=== PATIENT | female | born 1975 | race Hispanic/Latino ===

== ENCOUNTER → 2018-03-01 | Outpatient (CLI) | payer MEDICARE ==
[~2018-03-01] MED LIST: DIATR MEGLU/DIATRIZOATE SODIUM 30 ML BOTTLE ONE
== END | disposition home or self-care (01) ==
LOC: RAH 10:39
PROVIDERS: ATTEND Internal Medicine Gastroenterology
DX: Z43.1 Encounter for attention to gastrostomy (principal); M47.895 Other spondylosis, thoracolumbar region
CPT/HCPCS: 74018; Q9963

== ENCOUNTER → 2019-07-18 | Outpatient (CLI) | payer MEDICARE | END | disposition home or self-care (01) | LOC: RAH 10:52 | PROVIDERS: ATTEND Internal Medicine Gastroenterology | DX: M51.35 Other intervertebral disc degeneration, thoracolumbar region (principal) | CPT/HCPCS: 74018; Q9963 ==

== ENCOUNTER → 2023-06-20 | Outpatient (CLI) | payer MEDICARE | END | disposition home or self-care (01) | LOC: RAH 10:35 | PROVIDERS: ATTEND Internal Medicine Gastroenterology | DX: Z43.1 Encounter for attention to gastrostomy (principal); M47.815 Spondylosis without myelopathy or radiculopathy, thoracolumbar region | CPT/HCPCS: 74018; Q9963 ==

== ENCOUNTER 2024-02-05 08:11 | Emergency (ER) | payer MEDICARE ==
[~2024-02-05] VITALS: Ht 157.5 cm; Wt 54.4 kg
[2024-02-05] MEDS: METOCLOPRAMIDE 10 MG/2 ML VIAL IVP ONE (08:53)
[2024-02-05] MEDS: LACTATED RINGERS 1000ML IV SCH (08:53)
[2024-02-05 08:57] LABS: BASOPHILS # (AUTO) 0.03 K/uL (0.00-0.20); BASOPHILS % (AUTO) 0.5 % (0.0-5.0); EOSINOPHILS # (AUTO) 0.09 K/uL (0.00-0.70); EOSINOPHILS % (AUTO) 1.6 % (0.0-8.0); HEMATOCRIT 43.2 % (36-48); IMMATURE GRANULOCYTE ABSOLUTE 0.01 K/uL (0-1); LYMPHOCYTES # (AUTO) 1.9 K/uL (1.0-4.8); LYMPHOCYTES % (AUTO) 33.9 % (21.0-51.0); MEAN CORPUSCULAR HEMOGLOBIN 32.1 pg (27.0-33.0); MEAN CORPUSCULAR VOLUME 94.3 fL (79-99); MONOCYTES # (AUTO) 0.4 K/uL (0.1-1.0); MONOCYTES % (AUTO) 6.5 % (3.0-13.0); NEUTROPHILS # (AUTO) 3.2 K/uL (1.8-7.7); NEUTROPHILS % (AUTO) 57.3 % (40.0-77.0); PLATELET COUNT (AUTO) 189 K/uL (130-400); RED BLOOD CELL COUNT(AUTO) 4.58 MIL/uL (4.00-5.50); RED CELL DISTRIBUTION WIDTH 13.1 % (11.0-15.5); WHITE BLOOD COUNT (AUTO) 5.6 K/uL (4.8-10.8)
[2024-02-05 09:05] LABS: CREATININE 0.6 mg/dL (0.5-1.0); POTASSIUM 5.7 mmol/L (3.5-5.1)
[2024-02-05 09:20] LABS: MAGNESIUM 2.1 mg/dL (1.80-2.40); THYROID STIMULATING HORMONE 1.92 uIU/mL (0.36-3.74)
[2024-02-05] MEDS: KAYEXALATE 15GM/60ML GT ONE (09:57)
[2024-02-05 11:35] LABS: APPEARANCE,URINE CLEAR (CLEAR); BILIRUBIN,URINE NEGATIVE (NEGATIVE); COLOR,URINE COLORLESS (YELLOW); GLUCOSE, URINE (UA) NEGATIVE (NEGATIVE); KETONES,URINE NEGATIVE (NEGATIVE); LEUKOCYTE ESTERASE ,URINE NEGATIVE Leu/uL (NEGATIVE); NITRATE,URINE NEGATIVE (NEGATIVE); OCCULT BLOOD,URINE NEGATIVE (NEGATIVE); PH,URINE 7.5 (5.0-8.0); PROTEIN,URINE NEGATIVE (NEGATIVE); UROBILINOGEN,URINE 0.2 mg/dL (0.2-1.0)
[2024-02-05 11:40] LABS: ADD UA MICROSCOPIC NO
[2024-02-05] MEDS ORDERED: LACT20PA6 GT (12:04)
[2024-02-05 12:54] VITALS: BP 110/60; PULSE 78; RESP 16; O2SAT 99
== END 2024-02-05 13:04 | disposition home or self-care (01) ==
LOC: EDH 08:11
DX: K59.00 Constipation, unspecified (principal); E87.5 Hyperkalemia; G40.909 Epilepsy, unspecified, not intractable, without status epilepticus; Z90.710 Acquired absence of both cervix and uterus; Z88.5 Allergy status to narcotic agent
CPT/HCPCS: 99284; 96374; 96361; 84443; 83735; 80048; 85025; 81003; 36415; 74018; J7120; J2765

== ENCOUNTER 2024-12-12 10:52 | Observation (INO) | payer MEDICARE ==
[~2024-12-12] VITALS: Ht 157.5 cm; Wt 56.7 kg
[~2024-12-12 10:52] MED LIST changes: -DIATR MEGLU/DIATRIZOATE SODIUM 30 ML BOTTLE ONE; +LACT20PA6 GT
--- NOTE | 2024-12-12 11:16 | ERN ---
ED Note History of Present Illness Stated Complaint: NOT URINATING, VOMITTING Chief Complaint: Urinary Retention Time Seen by MD: 11:01 Dictation: PATIENT IS A 49-YEAR-OLD FEMALE WITH HER PARENTS WITH COMPLAINTS OF NAUSEA VOMITING MULTIPLE TIMES ONSET WAS MONDAY. ADDITIONALLY PARENTS SAY SHE HAS HAD A LOW-GRADE FEVER, LESS THAN 100 F. FINALLY, PATIENT HAS A PEG TUBE AND GETS A 1000 CALORIES3 TIMES A DAY HOWEVER FATHER STATES HE DID NOT FEED HER YESTERDAY NIGHT BECAUSE OF THE NAUSEA VOMITING. SHE WAS SEEN BY HER PRIMARY CARE DOCTOR TODAY WOULD REFERRED TO THE EMERGENCY ROOM FOR FURTHER EVALUATION AND TREATMENT. ALSO FATHER STATES SHE HAS NOT URINATED SINCE YESTERDAY. PATIENT HAS A HISTORY OF A PEG TUBE AND SEVERE MR. Allergies: Coded Allergies: codeine (Unverified Allergy, Unknown, 02/05/24) Home Meds Active Scripts [Linzess] No Conflict Check, 72 MCG PEG DAILY PRN for CONSTIPATION, #30 CAP 0 Refills Prov:MANUEL EDUARDO MD 12/12/24 [place]-3 Acid Ethyl Esters (Lovaza) 1 Gram Capsule, 1 CAP PO DAILYBKFST for 90 Days, #120 CAP 0 Refills Prov:MANUEL EDUARDO MD 12/12/24 Ursodiol (Ursodiol) 500 Mg Tablet, 500 MG PO BID, #180 TAB Prov:MANUEL EDUARDO MD 12/12/24 Phenobarbital (Phenobarbital) 20 Mg/5 Ml (5 Ml) Elixir, 12 ML PO BID for 90 Days, #105 ML 0 Refills Prov:MANUEL EDUARDO MD 12/12/24 Lactulose (Kristalose) 20 Gram Packet, 20 GM GT DAILY for 7 Days, #7 PKT Prov:YULIYA SHINP 02/05/24 Past Medical History Past Medical History: CVA, Seizure, Other Additional Past Medical Hx: MENTAL RETARDATION Surgical History: Hysterectomy, Other Surgical History Other: PEG TUBE History: Not Applicable RN Note Reviewed/Agreed w/PFSH: Yes Review of System Dictation CONSTITUTIONAL: NEGATIVE EXCEPT FOR HPI FEVER CHILLS HEAD/FACE: NEGATIVE EXCEPT FOR HPI EENT: NEGATIVE EXCEPT FOR HPI RESPIRATORY: NEGATIVE EXCEPT FOR HPI GASTROINTESTINAL/ABDOMINAL: NEGATIVE EXCEPT FOR HPI NAUSEA VOMITING GENITOURINARY: NEGATIVE EXCEPT FOR HPI NO URINATION SINCE YESTERDAY MUSCULOSKELETAL: NEGATIVE EXCEPT FOR HPI INTEGUMENTARY: NEGATIVE EXCEPT FOR HPI NEUROLOGICAL/PSYCH: NEGATIVE EXCEPT FOR HPI HEMATOLOGIC/LYMPHATIC: NEGATIVE EXCEPT FOR HPI ALL SYSTEMS NEGATIVE, EXCEPT NOTED ABOVE. 13 POINT REVIEW OF SYSTEMS ASSESSED AND ALL NEGATIVE EXCEPT FOR ABOVE. Initial Vital Sign VS Vital Signs Date Time Temp Pulse Resp B/P (MAP) Pulse Ox O2 Delivery O2 Flow Rate FiO2 12/12/24 10:59 98.8 74 20 105/64 96 Room Air 0 12/12/24 12:21 21 Physical Exam Dictation VITAL SIGNS REVIEWED GENERAL APPEARANCE: ALERT, NONVERBAL TO PLATE PAINTER. HEAD AND FACE: NON-TRAUMATIC. EYES: PERRL, PINK CONJUNCTIVAS, EYELID NO TRAUMA, ANTERIOR CHAMBER WITH ARCUS SENILIS. EARS: PINNAS INTACT AND NO SIGNS OF TRAUMA OR ERYTHEMA EAR CANALS CLEAR AND NO DISCHARGE TM NO ERYTHEMA NOSE: NO DISCHARGE, NO BLEEDING. OROPHARYNX: MOUTH NORMAL, TONGUE PINK, PHARYNX CLEAR,NO ERYTHEMA, TONSILS NO EXUDATES, NO ABSCESSES NOTED, MUCOUS MEMBRANE MOIST NECK: SUPPLE, NON-TENDER, NO THYROMEGALY, NO MASSES, NO JVD, NO BRUITS BREAST:DEFERRED CHEST:NO TENDERNESS, NO CREPITUS, NO PARADOXICAL MOVEMENT, NO RETRACTIONS LUNGS:CLEAR, WELL-VENTILATED, SYMMETRIC, NO RALES, NO WHEEZING, NO RHONCHI, NO STRIDOR, GOOD BREATH SOUNDS BILATERALLY HEART: REGULAR RATE, REGULAR RHYTHM, NO MURMUR, NO GALLOPS VASCULAR: NO PERIPHERAL EDEMA, ABDOMEN: SOFT, POSITIVE BOWEL SOUNDS, NONDISTENDED, NO GUARDING, NONTENDER, NO REBOUND, NO MASSES NO HEPATOMEGALY, NO SPLENOMEGALY, NO RODRIGUEZ'S SIGN, NO HERNIAS. PEG TUBE IN PLACE RECTAL: DEFERRED GENITAL: DEFERRED NEUROLOGICAL: ALERT NONVERBAL TO PLATE PAINTER. MOVES ALL EXTREMITIES WEAKLY SHE IS IN A WHEELCHAIR MUSCULOSKELETAL: NECK NONTENDER, EXTREMITIES: NONTENDER, FULL RANGE OF MOTION SKIN: COLOR PINK, DRY, NO TURGOR, NO RASH, NO LACERATIONS, NO ABRASIONS, NO CONTUSIONS. LYMPHATIC: DEFERRED Results (Laboratory/Radiology) Laboratory/Radiology Laboratory Tests Test 12/12/24 11:42 12/12/24 11:56 12/12/24 15:32 12/12/24 17:28 White Blood Count 10.8 K/uL (4.8-10.8) Red Blood Count 4.05 MIL/uL (4.00-5.50) Hemoglobin 13.0 g/dL (12.0-16.0) Hematocrit 37.7 % (36-48) Mean Corpuscular Volume 93.1 fL (79-99) Mean Corpuscular Hemoglobin 32.1 pg (27.0-33.0) Mean Corpuscular Hemoglobin Concent 34.5 g/dL (32.0-36.0) Red Cell Distribution Width 12.9 % (11.0-15.5) Platelet Count 194 K/uL (130-400) Mean Platelet Volume 12.0 fL (7.5-10.5) H Immature Granulocyte % (Auto) 0.3 % (0-1) Neutrophils (%) (Auto) 76.8 % (40.0-77.0) Lymphocytes (%) (Auto) 12.8 % (21.0-51.0) L Monocytes (%) (Auto) 9.9 % (3.0-13.0) Eosinophils (%) (Auto) 0.0 % (0.0-8.0) Basophils (%) (Auto) 0.2 % (0.0-5.0) Neutrophils # (Auto) 8.3 K/uL (1.8-7.7) H Lymphocytes # (Auto) 1.4 K/uL (1.0-4.8) Monocytes # (Auto) 1.1 K/uL (0.1-1.0) H Eosinophils # (Auto) 0.00 K/uL (0.00-0.70) Basophils # (Auto) 0.02 K/uL (0.00-0.20) Absolute Immature Granulocyte (auto 0.03 K/uL (0-1) Nucleated Red Blood Cells 0.0 % (0.0-0.19) Sodium Level 133 mmol/L (136-145) L Potassium Level 3.5 mmol/L (3.5-5.1) Chloride Level 93 mmol/L (101-111) L Carbon Dioxide Level 35 mmol/L (21-32) H Blood Urea Nitrogen 11 mg/dL (7-18) Creatinine 0.6 mg/dL (0.5-1.0) Glomerular Filtration Rate Calc 109 mL/min (>90) Random Glucose 107 mg/dL (70-105) H Lactic Acid Level 2.6 mmol/L (0.8-2.5) H 2.2 mmol/L (0.8-2.5) Total Calcium 9.6 mg/dL (8.5-10.1) Lipase 62 U/L (16-77) Urine Color LIGHT-YELLOW (YELLOW) Urine Appearance CLEAR (CLEAR) Urine pH 6.5 (5.0-8.0) Urine Specific Cameron 1.018 (1.001-1.031) Urine Protein 10 mg/dL (NEGATIVE) H Urine Glucose (UA) NEGATIVE mg/dL (NEGATIVE) Urine Ketones NEGATIVE mg/dL (NEGATIVE) Urine Occult Blood NEGATIVE (NEGATIVE) Urine Nitrate NEGATIVE (NEGATIVE) Urine Bilirubin NEGATIVE mg/dL (NEGATIVE) Urine Urobilinogen 0.2 mg/dL (0.2-1.0) Urine Leukocyte Esterase NEGATIVE Jessica/uL Urine RBC 2-5 /HPF (0-1) H Urine WBC 0-1 /HPF (0-1) Urine Squamous Epithelial Cells RARE /HPF (0-2) Urine Bacteria None /HPF (None Seen) Urine HCG, Qualitative NEGATIVE (NEGATIVE) D-Dimer Quantitative (PE/DVT) 218 ng/mL (0-500) Phenobarbital Level 22 mcg/mL (15-40) Whole Blood Glucose 129 MG/DL (70-110) H Labs Reviewed?: Yes ED Course ED Course Orders Procedure Category Date Status Time Blood Cult GHASSAN 12/12/24 In Process 11:13 Lactic Acid LAB 12/12/24 Complete 11:13 Straight Cath If No CPOE 12/12/24 Transmitted Void X6hrs 11:13 Cbc With Differential LAB 12/12/24 Complete 11:13 ,Urine Test LAB 12/12/24 Complete 11:13 Urinalysis Profile LAB 12/12/24 Complete 11:13 0.9%Nacl 1000ml (Ns PHA 12/12/24 Complete 1000ml) 11:30 Ondansetron 4mg Inj PHA 12/12/24 Complete (Zofran 4mg Inj) 11:30 Lipase LAB 12/12/24 Complete 11:13 Basic Metabolic Panel LAB 12/12/24 Complete 11:13 Nurse Driven Smith CORONA 12/12/24 In Process Removal Pro 11:55 0.9%Nacl 1000ml (Ns PHA 12/12/24 Complete 1000ml) 12:30 Ceftriaxone 2gm Vial PHA 12/12/24 Complete (Rocephin 2gm Inj) 12:30 Abd 1vw RAD 12/12/24 Resulted 13:00 Admit Orders ADM 12/12/24 Transmitted 14:47 Edm Admit Bridge Order ADM 12/12/24 Transmitted 14:47 Lactic Acid (Removed) LAB 12/12/24 Complete 15:06 Initiate CORONA 12/12/24 In Process Hyperglycemia Protoco 15:19 Insulin Regular, PHA 12/12/24 In Process Human 3ml (Humulin R 16:30 Initiate Hypoglycemia CORONA 12/12/24 In Process Protocol 15:19 Dextrose 50%-Water PHA 12/12/24 In Process (D50w) 15:30 Glucagon 1mg Kit PHA 12/12/24 In Process (Glucagon 1mg Kit) 15:30 Initiate Hypokalemia CPOE 12/12/24 Transmitted Po Half 15:19 Potassium Chloride PHA 12/12/24 In Process 10meq/100ml ([place] 15:30 Potassium Chl 10% PHA 12/12/24 In Process Elixir 20meq (Kcl 10% 15:30 Potassium Chloride PHA 12/12/24 In Process 20meq Er (K-Dur/Klor- 15:30 Notify Physician If CPOE 12/12/24 Transmitted There Is 15:19 Notify Md On The Next CPOE 12/12/24 Transmitted 15:19 Notify Md On The CPOE 12/12/24 Transmitted Next(Cont.) 15:19 Magnesium 2gm Premix PHA 12/12/24 In Process 50ml (Magnesium 2gm 15:30 Ammonia LAB 12/13/24 Verified 04:00 B-Type Natriuretic LAB 12/13/24 Verified Peptide 04:00 Cbc With Differential LAB 12/13/24 Verified 04:00 Comprehensive LAB 12/13/24 Verified Metabolic Panel 04:00 Creatine Kinase, Total LAB 12/13/24 Verified 04:00 D-Dimer LAB 12/12/24 Complete 15:19 Hemoglobin A1c LAB 12/13/24 Verified 04:00 Hepatic Function Panel LAB 12/13/24 Verified 04:00 Influenza Type A & B, LAB 12/12/24 Logged Rapid 15:19 Lactic Acid LAB 12/13/24 Verified 04:00 Magnesium LAB 12/13/24 Verified 02:00 Procalcitonin LAB 12/13/24 Verified 04:00 Vital Signs(Adult CPOE 12/12/24 Transmitted Hospitalist) 15:23 Daily Weights CPOE 12/12/24 Transmitted 15:23 I&O Q Shift CPOE 12/12/24 Transmitted 15:23 Fever: Blood Cx X 2 CPOE 12/12/24 Transmitted 15:23 Diphenhydramine Hcl PHA 12/12/24 In Process (Benadryl Cap) 15:30 Acetaminophen 325 Tab PHA 12/12/24 In Process (Tylenol 325mg Tab 15:30 Acetaminophen 325 Tab PHA 12/12/24 In Process (Tylenol 325mg Tab 15:30 Ondansetron 4mg Inj PHA 12/12/24 In Process (Zofran 4mg Inj) 15:30 Zolpidem Tartrate 5 PHA 12/12/24 In Process Mg Tab (Ambien) 15:30 Mag/Alum/Simeth 30ml PHA 12/12/24 In Process (Maalox Plus 30ml) 15:30 Lactulose 20 Gm/30 Ml PHA 12/12/24 In Process Udcup (Constulose 15:30 Nitroglycerin 0.4mg PHA 12/12/24 In Process Sl Tab (Nitrostat) 15:30 Guaifenesin-Dm PHA 12/12/24 In Process 200/20mg 10ml 15:30 Famotidine 20mg Vial PHA 12/12/24 Complete (Pepcid 20mg Vial) 15:30 Nurse To Enter Home CPOE 12/12/24 Transmitted Medication 15:23 Admit Orders ADM 12/12/24 Transmitted 15:23 Telemetry Monitoring CPOE 12/12/24 Transmitted 15:23 Activity: Br W/Brp CPOE 12/12/24 Transmitted With Assist 15:23 Nothing By Mouth DIET 12/12/24 Transmitted Dinner Heparin 5,000 Unit PHA 12/12/24 In Process Vial (Heparin 5,000 U 21:00 Apply Scds CPOE 12/12/24 Transmitted 15:23 Acetaminophen 325 Tab PHA 12/12/24 Complete (Tylenol 325mg Tab 15:30 Ketorolac PHA 12/12/24 In Process Tromethamine 15mg/Ml 15:30 Morphine 2mg Syg PHA 12/12/24 In Process (Morphine 2mg Syg) 15:30 Culture Urine GHASSAN 12/12/24 In Process 15:23 Chest 1vw RAD 12/12/24 Resulted 15:23 Echo 2-D Complete ECHO 12/12/24 Logged 15:23 *Nursing CPOE 12/12/24 Transmitted Communication: 15:23 Case Management CM 12/12/24 Transmitted Evaluation 15:23 Pt Eval Request PT 12/12/24 Transmitted 15:23 0.9%Nacl 1000ml (Ns PHA 12/12/24 In Process 1000ml) 15:30 Ceftriaxone 1g Vial PHA 12/12/24 Complete (Rocephine 1g Inj) 15:30 Hydralazine 20mg Inj PHA 12/12/24 In Process (Apresoline 20mg In 15:30 Famotidine 20mg Vial PHA 12/12/24 In Process (Pepcid 20mg Vial) 21:00 Ct Abdomen/Pelvis W/O CT 12/12/24 Resulted Contrast 15:30 Ceftriaxone 2gm Vial PHA 12/12/24 In Process (Rocephin 2gm Inj) 16:30 Feedings Per Peg CPOE 12/12/24 Transmitted 15:45 Urology Consult CONPHYSVC 12/12/24 Transmitted 17:12 Phenobarbital LAB 12/12/24 Complete 17:23 Current Medications Medications (Trade) Dose Ordered Sig/Veronika Route PRN Reason Start Time Stop Time Status Last Admin Dose Admin Ceftriaxone Sodium (Rocephin 2gm Inj) 2 gm ONCE ONCE IVPB 12/12/24 12:30 12/12/24 12:31 DC 12/12/24 13:37 Ondansetron HCl (zoFRAN 4MG INJ) 4 mg ONCE ONCE IVP 12/12/24 11:30 12/12/24 11:31 DC 12/12/24 12:51 Sodium Chloride 1,000 ml @ 0 mls/hr ONCE ONCE IV 12/12/24 11:30 12/12/24 11:31 DC 12/12/24 12:50 Sodium Chloride 1,701 ml @ 567 mls/hr ONCE ONCE IV 12/12/24 12:30 12/12/24 15:29 DC 12/12/24 12:51 Vital Signs Date Time Temp Pulse Resp B/P (MAP) Pulse Ox O2 Delivery O2 Flow Rate FiO2 12/12/24 14:46 98.8 72 20 107/65 98 Room Air* 0 12/12/24 13:19 98.8 74 20 104/63 96 Room Air* 0 12/12/24 12:21 98.8 72 20 108/55 98 Room Air* 0 21 12/12/24 10:59 98.8 74 20 105/64 96 Room Air 0 1155/BLADDER SCAN BY PIPE WRAPPING MACHINE OPERATOR DEMONSTRATES GREATER THAN 500 ML URINE IN BLADDER. WE WILL PLACE SMITH CATHETER, PATIENT WE WILL BE ADMITTED TO THE HOSPITAL FOR ACUTE URINARY TENSION IN A FEMALE AND THIS WAS GIVEN TO THE PARENTS OF THE PATIENT. THEY BOTH AGREED IN THE ADMISSION.1300/ 1300/PATIENT IS HEMODYNAMICALLY STABLE HAS BEEN GIVEN 30 PER KILOS FLUIDS WITH ROCEPHIN FOR LACTIC ACID 2.6. PARENTS ARE AWARE OF ALL LABORATORY FINDINGS HOW EVER PATIENT WILL BE ADMITTED TO THE HOSPITAL FOR ACUTE URINARY RETENTION AND LACTIC ACID DOSES. IN ADDITION I TOLD HIM I WOULD PERFORM A KUB DUE TO HER HISTORY OF BLOATING AND NEED FOR LINZESS DUE TO CONSTIPATION AND HER PEG TUBE FEEDINGS. THEY STATE HER LAST BOWEL MOVEMENT WAS YESTERDAY AND IT WAS NORMAL. 1445/[facility] WITH [facility] AND REVIEWED LABS SMITH CATHETER AND INTERVENTIONS FOR SEPSIS. SHE AGREED TO ADMIT PATIENT. Medical Decision Making MDM MDM: DIFFERENTIAL DIAGNOSIS: ACUTE URINARY RETENTION/UTI/CONSTIPATION/ELECTROLYTE IMBALANCE/DEHYDRATION/SEPSIS RATIONALE: TESTS CONSIDERED AND ORDERED SECONDARY TO SHARED DECISION MAKING INCLUDE: LABS, AND RADIOLOGY PREVIOUS OUTSIDE RECORDS REVIEWED: OLD ER VISITS. RISK OF COMPLICATION AND/OR MORBIDITY OR MORTALITY OF PATIENT MANAGEMENT: MILD MEDICATIONS-PER MEDICATION RECONCILIATION NEED FOR HOSPITALIZATION: PATIENT DOES MEET CRITERIA FOR HOSPITALIZATION. PATIENT WILL NEED HER LACTIC ACIDOSIS ADDRESSED AND UROLOGY REFERRAL FOR ACUTE URINARY RETENTION NEED FOR EMERGENCY MAJOR/MINOR SURGERY: NO THERE ARE NO SOCIAL CONCERNS WITH THIS PATIENT. PRESCRIPTION DRUG MANAGEMENT PRESCRIPTIONS WILL INCLUDE SYMPTOMATIC CARE PATIENT'S PRIOR EXTERNAL MEDICAL RECORDS FROM OTHER ER VISITS WERE REVIEWED BY ME INDICATED. PRIOR TESTING AND RESULTS FROM PREVIOUS VISITS WERE REVIEWED. PRIOR TESTS WERE TAKEN INTO ACCOUNT WITH MEDICAL DECISION MAKING AND RESOURCE UTILIZATION, INDEPENDENT HISTORIAN/HISTORIANS WERE USED TO OBTAIN COMPLETE MEDICAL HISTORY. I INDEPENDENTLY INTERPRETED THE TEST THAT WERE PERFORMED, RESULTS WERE REVIEWED BY ME AND CONSIDERED FINDINGS ON RADIOLOGY IF ORDERED. MEDICAL MANAGEMENT AND EXAMINATION INTERPRETATION DISCUSSIONS WERE HAD BY ME WITH OTHER QUALIFIED HEALTHCARE PROFESSIONALS INDICATED FOR THE PATIENT'S CARE. DX & DISP Disposition: Inpatient Decision to Admit Time: 13:02 Departure Impression: Primary Impression: Acute urinary retention Additional Impressions: OWEN (acute kidney injury), Hyponatremia, G tube feedings, Lactic acidosis Condition: Stable Scripts [Linzess] No Conflict Check 72 MCG PEG DAILY PRN for CONSTIPATION, #30 CAP 0 Refills Prov: MANUEL EDUARDO MD 12/12/24 [place]-3 Acid Ethyl Esters (Lovaza) 1 Gram Capsule 1 CAP PO DAILYBKFST for 90 Days, #120 CAP 0 Refills Prov: MANUEL EDUARDO MD 12/12/24 Ursodiol (Ursodiol) 500 Mg Tablet 500 MG PO BID, #180 TAB Prov: MANUEL EDUARDO MD 12/12/24 Phenobarbital (Phenobarbital) 20 Mg/5 Ml (5 Ml) Elixir 12 ML PO BID for 90 Days, #105 ML 0 Refills Prov: MANUEL EDUARDO MD 12/12/24 Referrals: MANUEL EDUARDO MD (PCP) Time of Disposition: 13:02 I have reviewed the case, and I agree with, Diagnosis and Plan I performed the substantive portion of the visit. I have reviewed and personally made and approve the management plan that is documented in the notes by myself or the ZAC. I acknowledge full responsibility for the patient's management plan. SINGH WALDRON NP Dec 12, 2024 11:16 JEANNETTE ENRIQUEZ MD Dec 12, 2024 18:39
[2024-12-12 11:54] LABS: BASOPHILS # (AUTO) 0.02 K/uL (0.00-0.20); BASOPHILS % (AUTO) 0.2 % (0.0-5.0); HEMATOCRIT 37.7 % (36-48); IMMATURE GRANULOCYTE ABSOLUTE 0.03 K/uL (0-1); LYMPHOCYTES # (AUTO) 1.4 K/uL (1.0-4.8); LYMPHOCYTES % (AUTO) 12.8 % (21.0-51.0); MEAN CORPUSCULAR HEMOGLOBIN 32.1 pg (27.0-33.0); MEAN CORPUSCULAR HGB CONC 34.5 g/dL (32.0-36.0); MEAN CORPUSCULAR VOLUME 93.1 fL (79-99); MONOCYTES # (AUTO) 1.1 K/uL (0.1-1.0); MONOCYTES % (AUTO) 9.9 % (3.0-13.0); NEUTROPHILS # (AUTO) 8.3 K/uL (1.8-7.7); NEUTROPHILS % (AUTO) 76.8 % (40.0-77.0); PLATELET COUNT (AUTO) 194 K/uL (130-400); RED BLOOD CELL COUNT(AUTO) 4.05 MIL/uL (4.00-5.50); RED CELL DISTRIBUTION WIDTH 12.9 % (11.0-15.5); WHITE BLOOD COUNT (AUTO) 10.8 K/uL (4.8-10.8)
[2024-12-12 12:10] LABS: ADD UA MICROSCOPIC YES; APPEARANCE,URINE CLEAR (CLEAR); BILIRUBIN,URINE NEGATIVE (NEGATIVE); COLOR,URINE LIGHT-YELLOW (YELLOW); GLUCOSE, URINE (UA) NEGATIVE (NEGATIVE); KETONES,URINE NEGATIVE (NEGATIVE); LEUKOCYTE ESTERASE ,URINE NEGATIVE Leu/uL (NEGATIVE); NITRATE,URINE NEGATIVE (NEGATIVE); OCCULT BLOOD,URINE NEGATIVE (NEGATIVE); PH,URINE 6.5 (5.0-8.0); PROTEIN,URINE 10 mg/dL (NEGATIVE); UROBILINOGEN,URINE 0.2 mg/dL (0.2-1.0)
[2024-12-12 12:11] LABS: CREATININE 0.6 mg/dL (0.5-1.0); POTASSIUM 3.5 mmol/L (3.5-5.1)
[2024-12-12 12:14] LABS: MUCUS,URINE RARE LPF (None Seen); SQUAMOUS EPITHELIAL CELL,UR RARE /HPF (0-2); WBC,URINE 0-1 /HPF (0-1)
[2024-12-12 12:18] LABS: HCG,QUALITATIVE URINE NEGATIVE (NEGATIVE)
[2024-12-12] MEDS: 0.9%NACL 1000ML 1,000 ML IV ONE (12:50)
[2024-12-12] MEDS: [UNRECOGNIZED DRUG - OTHER] IV ONE (12:51)
[2024-12-12] MEDS: ondanSETRON 4MG INJ IVP ONE (12:51)
[2024-12-12] MEDS: CEFTRIAXONE 2GM VIAL IVPB ONE (13:37)
[2024-12-12] MEDS ORDERED: MAG/ALUM/SIMETH 30 ML UDCUP PO PRN (15:30)
[2024-12-12] MEDS ORDERED: GLUCAGON 1MG KIT 1 MG ML IM PRN (15:30)
[2024-12-12] MEDS ORDERED: ZOLPidem TARTrate 5 MG TAB PO PRN (15:30)
[2024-12-12] MEDS ORDERED: acetaMINOPHEN 325 MG TAB PO PRN ×2 (15:30)
[2024-12-12] MEDS ORDERED: LACTULOSE 20 GM/30 ML UDCUP PO PRN (15:30)
[2024-12-12] MEDS ORDERED: hydrALAZine 20MG/ML VIAL IV PRN (15:30)
[2024-12-12] MEDS ORDERED: PoTASSium chloRIDE 10MEQ/100ML 100 ML IV PRN (15:30)
[2024-12-12] MEDS ORDERED: PoTASSium chloRIDE 20MEQ ER 20 MEQ ERTAB PO PRN (15:30)
[2024-12-12] MEDS ORDERED: FAMOTIDINE 20MG VIAL IV PRN (15:30)
[2024-12-12] MEDS ORDERED: guaiFENesin-DM 200/20MG 10ML PO PRN (15:30)
[2024-12-12] MEDS ORDERED: ondanSETRON 4MG INJ IV PRN (15:30)
[2024-12-12] MEDS ORDERED: MAGNESIUM 2GM PREMIX 50ML 50 ML IV PRN (15:30)
[2024-12-12] MEDS ORDERED: cefTRIAXone 1G VIAL 2 GM in 0.9%NACL 100ML 100 ML IV SCH (15:30)
[2024-12-12] MEDS ORDERED: PoTASSium chl 10% ELIXIR 20MEQ 20 MEQ/15 ML UDCUP PO PRN (15:30)
[2024-12-12] MEDS ORDERED: DiphenhydrAMINE HCL 25 MG CAPSULE PO PRN (15:30)
[2024-12-12] MEDS ORDERED: DEXTROSE 50%-WATER 50 ML DISP.SYRIN IV PRN (15:30)
[2024-12-12] MEDS ORDERED: NITROGLYCERIN 0.4 MG SL TAB SL PRN (15:30)
[2024-12-12] MEDS ORDERED: ketOROlac 15MG/ML VIAL (15MG/ML) IV PRN (15:30)
[2024-12-12] MEDS ORDERED: morPHINE 2 MG SYG IVP PRN (15:30)
[2024-12-12] MEDS ORDERED: PHEN20EL19 PO (15:37)
[2024-12-12] MEDS ORDERED: URSO500T10 PO (15:41)
[2024-12-12] MEDS ORDERED: OMEG1CAP31 PO (15:41)
[2024-12-12] MEDS ORDERED: LINZESS PEG (15:41)
[2024-12-12] MEDS: CEFTRIAXONE 2GM VIAL IVPB SCH (15:47)
[2024-12-12] MEDS: 0.9%NACL 1000ML 1,000 ML IV SCH (15:48)
--- NOTE | 2024-12-12 15:56 | HP ---
[facility] HISTORY AND PHYSICAL Date of Service: Dec 12, 2024 Time of Service: 15:32 PCP: Dr Tammie Lafleur Admitting: Dr Beckman Allergies: codeine HISTORY OF PRESENT ILLNESS: [ Patient is 49 years old female with a past medical history of stroke, seizure, severe mental retardation, hysterectomy, peg tube placement, who came to emergency department with a complaint of nausea, vomiting and inability to urinate since yesterday. Patient had multiple NSAIDs of nausea vomiting since Monday. Inability urinate since yesterday. Parents stated he had a low grade fever at home as well which was less than 100 F. patient also has a PEG tube and gets 1000 calorie 3 times a day however as per father patient was not able to feed the patient yesterday night because of the persistent nausea and vomiting. Patient was also seen/evaluated by her primary care provider and recommended that the patient goes to emergency department for further evaluation and treatment. Most recent vital signs temperature 98.8 pulse 72 respiration 20 blood pressure is 107/65 patient is on room air satting 98%. WBC 10.8 hemoglobin 13 hematocrit 37.7 platelets 194 UA negative for leukocytosis or nitrates. Sodium one three potassium 3.5 chloride 93 CO2 35 BUN 11 creatinine 0.6 GFR 109 lactic acid 2.6 and repeated 2.2 calcium Ultrasound abdomen pending. Patient will be admitted under hospitalist care for further evaluation.] REVIEW OF SYSTEMS CONSTITUTIONAL: Denies fevers, chills, or night sweats. No unintentional weight loss reported. NEUROLOGICAL: Denies headache, amaurosis fugax, motor weakness, sensory deficit, vertigo/spinning sensation, gait abnormalities, or tremors. ENT: No hearing loss, otalgia, otorrhea, rhinitis, rhinorrhea, hoarseness, or sore throat. CARDIOVASCULAR: Denies any exertional angina, dyspnea on exertion, orthopnea, paroxysmal nocturnal dyspnea, palpitations, life-threatening arrhythmias, claudication. PULMONARY: Denies any shortness of breath, cough, phlegm/sputum, hemoptysis, pleuritic chest pain. SLEEP: Denies morning headaches, daytime somnolence or napping. Denies difficulty falling asleep, staying asleep, waking from sleep. Denies knowledge of snoring. GASTROINTESTINAL: Denies any type of dysphagia to either liquids or solids. Denies pyrosis, early satiety, abdominal pain, diarrhea, constipation, or changes in stool consistency or caliber. Denies coffee-ground emesis, hematemesis, hematochezia, or melanotic stools. Complains of persistent nausea and vomiting GENITOURINARY: Denies frequency, urgency, nocturia, hematuria or incontinence (Storage/Irritative symptoms.) Low urinary stream, straining to void, urinary intermittency or hesitancy, splitting of the voiding stream, terminal dribbling. Complains of inability to urinate ENDOCRINOLOGIC: Denies polyuria, polydipsia, polyphagia or heat/cold intolerances. HEMATOLOGIC: Denies thrombophilia/previous clots, or coagulopathy/bleeding disorders. ONCOLOGIC: Denies personal history of malignancy. DERMATOLOGIC: Denies rashes or pruritus. PSYCHIATRIC: Denies any suicidal or homicidal ideation. Denies hallucinations. PAST MEDICAL HISTORY: [ Severe mental retardation, epilepsy, stroke, hld, GERD, costipation, ] PAST SURGICAL HISTORY: [ Hysterectomy, peg tube placement] PAST SOCIAL HISTORY: [ Denies smoking, denies any alcohol illicit. Denies drug illicit] FAMILY HISTORY: [ Patient lives at home with both parents. Bed-bound ] Coded Allergies: codeine (Unverified Allergy, Unknown, 02/05/24) PHYSICAL EXAM GENERAL APPEARANCE: The patient is awake, alert, and oriented, in no acute cardiopulmonary distress. NEUROLOGICAL: Cranial nerves II-XII grossly intact. Motor is 5/5 in bilateral upper and lower extremities proximal to distal. No sensory deficits. HEENT: Face is symmetric. Pupils are equal and reactive. Extraocular movements are intact. NECK: Supple. No JVD. No thyromegaly. No submental, submandibular, pre- /postauricular, occipital or supraclavicular lymphadenopathy. CHEST: Normal chest expansion. No Telemetry. LUNGS: Absence of any rales, rhonchi or any wheezing. CARDIOVASCULAR: Regular. S1 and S2 normal. No appreciable rubs, murmurs or gallops. ABDOMEN: Soft, nontender, and nondistended. There is no rebound, voluntary guarding, or rigidity. : Deferred. No Ruiz. EXTREMITIES: Non-edematous and not cyanotic. No clubbing. Good capillary refill. SKIN: No skin breakdown. Vital Sign (Last 24 Hours) 12/12/24 14:46 Temp 98.8 Pulse 72 Resp 20 B/P (MAP) 107/65 Pulse Ox 98 O2 Delivery Room Air* O2 Flow Rate 0 FiO2 21 LABS: Laboratory: Test 12/12/24 11:56 12/12/24 11:42 Range/Units Urine Color LIGHT-YELLOW YELLOW Urine Appearance CLEAR CLEAR Urine pH 6.5 5.0-8.0 Urine Specific [place] 1.018 1.001-1.031 Urine Protein 10 H NEGATIVE mg/dL Urine Glucose (UA) NEGATIVE NEGATIVE mg/dL Urine Ketones NEGATIVE NEGATIVE mg/dL Urine Occult Blood NEGATIVE NEGATIVE Urine Nitrate NEGATIVE NEGATIVE Urine Bilirubin NEGATIVE NEGATIVE mg/dL Urine Urobilinogen 0.2 0.2-1.0 mg/dL Urine Leukocyte Esterase NEGATIVE NEGATIVE Jessica/uL Urine RBC 2-5 H 0-1 /HPF Urine WBC 0-1 0-1 /HPF Urine Squamous Epithelial Cells RARE 0-2 /HPF Urine Bacteria None None Seen /HPF Urine HCG, Qualitative NEGATIVE NEGATIVE White Blood Count 10.8 4.8-10.8 K/uL Red Blood Count 4.05 4.00-5.50 MIL/uL Hemoglobin 13.0 12.0-16.0 g/dL Hematocrit 37.7 36-48 % Mean Corpuscular Volume 93.1 79-99 fL Mean Corpuscular Hemoglobin 32.1 27.0-33.0 pg Mean Corpuscular Hemoglobin Concent 34.5 32.0-36.0 g/dL Red Cell Distribution Width 12.9 11.0-15.5 % Platelet Count 194 130-400 K/uL Mean Platelet Volume 12.0 H 7.5-10.5 fL Immature Granulocyte % (Auto) 0.3 0-1 % Neutrophils (%) (Auto) 76.8 40.0-77.0 % Lymphocytes (%) (Auto) 12.8 L 21.0-51.0 % Monocytes (%) (Auto) 9.9 3.0-13.0 % Eosinophils (%) (Auto) 0.0 0.0-8.0 % Basophils (%) (Auto) 0.2 0.0-5.0 % Neutrophils # (Auto) 8.3 H 1.8-7.7 K/uL Lymphocytes # (Auto) 1.4 1.0-4.8 K/uL Monocytes # (Auto) 1.1 H 0.1-1.0 K/uL Eosinophils # (Auto) 0.00 0.00-0.70 K/uL Basophils # (Auto) 0.02 0.00-0.20 K/uL Absolute Immature Granulocyte (auto 0.03 0-1 K/uL Nucleated Red Blood Cells 0.0 0.0-0.19 % Sodium Level 133 L 136-145 mmol/L Potassium Level 3.5 3.5-5.1 mmol/L Chloride Level 93 L 101-111 mmol/L Carbon Dioxide Level 35 H 21-32 mmol/L Blood Urea Nitrogen 11 7-18 mg/dL Creatinine 0.6 0.5-1.0 mg/dL Glomerular Filtration Rate Calc 109 >90 mL/min Random Glucose 107 H 70-105 mg/dL Lactic Acid Level 2.6 H 0.8-2.5 mmol/L Total Calcium 9.6 8.5-10.1 mg/dL Lipase 62 16-77 U/L Current Medications Medications (Trade) Dose Ordered Sig/Veronika Route PRN Reason Start Time Stop Time Status Last Admin Dose Admin Dextrose (D50w) 50 ml AD PRN IV HYPOGLYCEMIA PROTOCOL 12/12/24 15:30 01/11/25 15:29 Glucagon (Glucagon 1mg Kit) 1 mg AD PRN IM HYPOGLYCEMIA PROTOCOL 12/12/24 15:30 01/11/25 15:29 Insulin Human Regular (humuLIN R 100 UNIT/ML 3ML) INSULIN SLIDING SCAL... ACHS SQ 12/12/24 16:30 01/11/25 16:29 Magnesium Sulfate 50 ml @ 0 mls/hr PROTOCOL PRN IV other 12/12/24 15:30 01/11/25 15:29 Potassium Chloride 100 ml @ 100 mls/hr AD PRN IV POTASSIUM PROTOCOL 12/12/24 15:30 01/11/25 15:29 UNV Potassium Chloride (K-Dur/Klor-Con 20meq) 10 meq AD PRN PO POTASSIUM PROTOCOL 12/12/24 15:30 01/11/25 15:29 UNV Potassium Chloride (KCl 10% Elixir 20meq/15ml) 10 meq AD PRN PO POTASSIUM PROTOCOL 12/12/24 15:30 01/11/25 15:29 UNV DIAGNOSTICS / RADIOLOGY: [ ] ASSESSMENT: Acute lactic acidosis POA Acute urinary retention POA Persistent nausea and vomiting POA Acute dehydration due to above POA Acute hypotension POA Electrolyte imbalance hyponatremia Na 133 POA Leukocytosis WBC 10.8 POA Severe mental retardation POA Epilepsy POA Hyperlipidemia POA GERD POA Chronic constipation POA History of stroke POA History of hysterectomy ] PLAN: [ Admit to: Medical-surgical floor with telemetry Consults: Urologist consultation Antibiotics: Rocephin Tests: Chest x-ray, 2D echo, CT abdomen/pelvis NEURO: Minimize central acting medications as possible. Fall Precautions. Well lighted room through the day and minimize interruptions through the night to prevent acute delirium. PULMONARY: Chest x-ray pending Supplemental 02 as needed BiPAP as necessary, for respiratory distress Titrate Fio2 to keep Spo2 > or = 90% DuoNebs and CPT as needed IS hourly while awake for pulmonary hygiene Out of bed to chair as tolerated VAP Bundle Maintain aspiration precautions at all times CARDIOVASCULAR: 2D echo pending Follow hemodynamics. Vital signs per facility protocol GI & NUTRITION: CT abdomen/pelvis pending Normal saline at 60 mL/hour PEG tube continue as at home Continue nutritional support Aspirations precautions Prokinetic agents and laxatives as needed KIDNEYS & ELECTROLYTES: Strict monitoring of intake and output Daily weights Avoid nephrotoxic agents Monitor electrolytes and replace as needed Goal urine output of 30mL/hr or 0.5mL/kg/hr Medications to be dosed according to renal function. Avoid contrast if possible ENDOCRINE: Urologist consultation Urine culture pending Maintain blood glucose between 100-180 at all times. Insulin sliding scale for blood glucose management Hypoglycemia and hyperglycemia protocol in place INFECTIOUS DISEASE: Trend temperature, WBC and procalcitonin level Follow cultures, deescalate antibiotics as soon as possible. Panculture if new onset fever HEMATOLOGY & COAGULATION: Blood culture pending Monitor H&H. Keep Hgb > 7 Transfuse 1 unit of PRBC for Hgb < 7 Transfuse 1 pack of platelets of platelets < 20, 000 Watch for any signs and symptoms of bleeding SKIN: Pressure ulcer prevention per facility protocol Specialty mattress as needed Treatment plan discussed with patient and family at the bedside Medications to be reconciled once obtained by patient and/or family and available to be reconciled in computer p.r.n. medication for pain nausea and vomiting Questions were answered We will continue to monitor the patient closely [employer]visor [employer] for disposition Rehab: PT/OT GI: PPI DVT: SCD's Code Status: Full Resuscitation Disposition: TBD Prognosis: Guarded ] ATTESTATION BY PHYSICIAN I have seen and examined the patient. I reviewed the documentation, medical decision making, and treatment plan as noted by the mid-level provider above. I agree with the findings and plan of care. DAISY Thomas MD [employer] HEL[employer] Dec 12, 2024 15:56
--- NOTE | 2024-12-12 15:56 | NUR ---
PER PTS PARENTS THEY WILL BE USING THEIR OSMOLITE 1.2 JAY AND PROVIDE THE TUBE FEEDINGS 4X A DAY
--- NOTE | 2024-12-12 16:17 | HMCIMG ---
ABD 1VW HISTORY: Abdominal bloating COMPARISON: None FINDINGS: A frontal projection of the abdomen was obtained. A nonspecific bowel gas pattern is seen. Fecal material is seen in the colon. [There is possible tube is seen. There is scoliosis. Degenerative changes of the thoracolumbar spine are noted. IMPRESSION: 1. A nonspecific bowel gas pattern is seen.
[2024-12-12] MEDS: INSULIN humuLIN R 100 UNIT/ML 3ML SQ SCH (16:30)
--- NOTE | 2024-12-12 16:45 | HMCIMG ---
CT ABDOMEN/PELVIS W/O CONTRAST HISTORY: Nausea and vomiting COMPARISON: None TECHNIQUE: Multiple sequential axial images of the abdomen and pelvis were obtained from the dome of the diaphragm through symphysis pubis. Patient was not given contrast through intravenous route. Oral contrast was not given. FINDINGS: Tiny bilateral pleural effusions are seen. There is no evidence of parenchymal disease or pulmonary nodule of the visualized lower lungs. Degenerative changes of the thoracolumbar spine are present. The heart is not enlarged. Liver measures 16 cm. Gastrostomy tube is seen with distal tip in the stomach. Minimal bilateral perinephric fat stranding is seen. If there is clinical suspicion for pyelonephritis, urinalysis correlation may be helpful. The liver, spleen, adrenal glands and pancreas are unremarkable. There is no evidence of hydronephrosis bilaterally. No evidence of renal stone is seen. Fecal material is seen in the colon. There are normal size retroperitoneal and mesenteric lymph nodes. No ascites is seen. There may be mild diverticulosis. Appendix is not well seen limiting evaluation. Pelvic sidewalls are symmetric bilaterally. Bladder is poorly distended with Ruiz catheter. IMPRESSION: 1. Minimal bilateral perinephric fat stranding is seen. If there is clinical suspicion for pyelonephritis, urinalysis correlation may be helpful. Mild diverticulosis. Tiny bilateral pleural effusions. CT was performed with one or more following dose reduction techniques: automated exposure control, adjustment of the mA and kv according to patient's size, or use of a iterative reconstruction technique.
--- NOTE | 2024-12-12 16:50 | HMCIMG ---
CHEST 1VW HISTORY: Congestion COMPARISON: None FINDINGS: A frontal projection of the chest was obtained. No acute pulmonary infiltrates is seen. The heart is borderline enlarged. Prominent interstitial markings are seen. Degenerative changes are seen. IMPRESSION: 1. No acute pulmonary infiltrate is seen.
--- NOTE | 2024-12-12 18:00 | NUR ---
CALLED UROLOGY CONSULT PENDING CALL BACK
[2024-12-12] MEDS: acetaMINOPHEN 325 MG TAB PO PRN (18:43)
[2024-12-12] MEDS: FAMOTIDINE 20MG VIAL IV SCH (20:21)
[2024-12-12] MEDS: HEParin 5,000 UNIT VIAL SQ SCH (20:21)
[2024-12-12 20:41] VITALS: TEMP 101.2
--- NOTE | 2024-12-12 21:19 | CONS ---
UROLOGY CONSULTATION NOTE Date of Service: Dec 12, 2024 Reason for Consultation: Urinary retention Requesting Physician: Hospitalist team HISTORY OF PRESENT ILLNESS: 49 years old female with a past medical history of stroke, seizure, severe mental retardation, hysterectomy, peg tube placement, who came to emergency department with a complaint of nausea, vomiting and inability to urinate since yesterday. Patient had multiple episodes of nausea vomiting since Monday. Inability urinate since yesterday. Parents stated he had a low grade fever at home as well which was less than 100 F. patient also has a PEG tube and gets 1000 calorie 3 times a day however as per father patient was not able to feed the patient yesterday night because of the persistent nausea and vomiting. Patient was also seen/evaluated by her primary care provider and recommended that the patient goes to emergency department for further evaluation and treatment. Parents present at bedside state that patient voids volitionally into a diaper/pull up and is changed daily. It is quite obvious that patient diaper voids via overflow incontinence. They also stressed the fact that she deals with severe constipation from time to time despite being managed medically with [facility]. She has not seen a urologist in the past. WBC 10.8 hemoglobin 13 hematocrit 37.7 platelets 194 UA negative for leukocytosis or nitrates. Sodium one three potassium 3.5 chloride 93 CO2 35 BUN 11 creatinine 0.6 GFR 109 lactic acid 2.6 and repeated 2.[address] scan of the abdomen and pelvis without intravenous contrast showed a decompressed bladder secondary to a Ruiz catheter in place, this bilateral mild perinephric fat stranding, and the rectum is severely distended with stool lumps. A urological consult was requested REVIEW OF SYSTEMS Unable to obtain, patient is nonverbal PAST MEDICAL HISTORY: Mental retardation, possibly autism spectrum disorder History of epilepsy Cerebrovascular accident Hyperlipidemia Gastroesophageal reflux disease Severe constipation PAST SURGICAL HISTORY: Hysterectomy Percutaneous gastrostomy tube PAST SOCIAL HISTORY: No ethanol No drugs No smoking FAMILY HISTORY: Family history noncontributory to presenting complaint Coded Allergies: codeine (Unverified Allergy, Unknown, 02/05/24) PHYSICAL EXAM EYES: Anicteric. Pupils equal and reactive. HENT: No oral thrush seen, moist Oral mucosa NECK: Supple, no JVD or thyromegaly. LUNGS: Good air entry. No rales, no rhonchi. CARDIOVASCULAR: S1, S2 regular. No murmur heard. ABDOMEN: Soft, non tender, bowel sounds present, no organomegaly CENTRAL NERVOUS SYSTEM: Awake, alert, oriented x 3. No focal deficits. SKIN: No rashes, no swelling. LYMPHATICS: No peripheral lymphadenopathy MUSCULOSKELETAL: No joint swelling, erythema or tenderness. EXTREMITIES: No cyanosis or clubbing BACK: No deformity, no pressure ulcer. GENITOURINARY: Ruiz catheter is in place draining clear urine Vital Sign (Last 24 Hours) 12/12/24 12/12/24 18:46 20:27 Temp 100.2 Pulse 77 Resp 16 B/P (MAP) 125/54 Pulse Ox 99 O2 Delivery Room Air* O2 Flow Rate 0 FiO2 21 LABS: Laboratory: Test 12/12/24 19:57 12/12/24 15:32 12/12/24 11:56 12/12/24 11:42 Range/Units Whole Blood Glucose 158 H 70-110 MG/DL D-Dimer Quantitative (PE/DVT) 218 0-500 ng/mL Lactic Acid Level 2.2 0.8-2.5 mmol/L Phenobarbital Level 22 15-40 mcg/mL Urine Color LIGHT-YELLOW YELLOW Urine Appearance CLEAR CLEAR Urine pH 6.5 5.0-8.0 Urine Specific [place] 1.018 1.001-1.031 Urine Protein 10 H NEGATIVE mg/dL Urine Glucose (UA) NEGATIVE NEGATIVE mg/dL Urine Ketones NEGATIVE NEGATIVE mg/dL Urine Occult Blood NEGATIVE NEGATIVE Urine Nitrate NEGATIVE NEGATIVE Urine Bilirubin NEGATIVE NEGATIVE mg/dL Urine Urobilinogen 0.2 0.2-1.0 mg/dL Urine Leukocyte Esterase NEGATIVE NEGATIVE Jessica/uL Urine RBC 2-5 H 0-1 /HPF Urine WBC 0-1 0-1 /HPF Urine Squamous Epithelial Cells RARE 0-2 /HPF Urine Bacteria None None Seen /HPF Urine HCG, Qualitative NEGATIVE NEGATIVE White Blood Count 10.8 4.8-10.8 K/uL Red Blood Count 4.05 4.00-5.50 MIL/uL Hemoglobin 13.0 12.0-16.0 g/dL Hematocrit 37.7 36-48 % Mean Corpuscular Volume 93.1 79-99 fL Mean Corpuscular Hemoglobin 32.1 27.0-33.0 pg Mean Corpuscular Hemoglobin Concent 34.5 32.0-36.0 g/dL Red Cell Distribution Width 12.9 11.0-15.5 % Platelet Count 194 130-400 K/uL Mean Platelet Volume 12.0 H 7.5-10.5 fL Immature Granulocyte % (Auto) 0.3 0-1 % Neutrophils (%) (Auto) 76.8 40.0-77.0 % Lymphocytes (%) (Auto) 12.8 L 21.0-51.0 % Monocytes (%) (Auto) 9.9 3.0-13.0 % Eosinophils (%) (Auto) 0.0 0.0-8.0 % Basophils (%) (Auto) 0.2 0.0-5.0 % Neutrophils # (Auto) 8.3 H 1.8-7.7 K/uL Lymphocytes # (Auto) 1.4 1.0-4.8 K/uL Monocytes # (Auto) 1.1 H 0.1-1.0 K/uL Eosinophils # (Auto) 0.00 0.00-0.70 K/uL Basophils # (Auto) 0.02 0.00-0.20 K/uL Absolute Immature Granulocyte (auto 0.03 0-1 K/uL Nucleated Red Blood Cells 0.0 0.0-0.19 % Sodium Level 133 L 136-145 mmol/L Potassium Level 3.5 3.5-5.1 mmol/L Chloride Level 93 L 101-111 mmol/L Carbon Dioxide Level 35 H 21-32 mmol/L Blood Urea Nitrogen 11 7-18 mg/dL Creatinine 0.6 0.5-1.0 mg/dL Glomerular Filtration Rate Calc 109 >90 mL/min Random Glucose 107 H 70-105 mg/dL Total Calcium 9.6 8.5-10.1 mg/dL Lipase 62 16-77 U/L DIAGNOSTICS / RADIOLOGY: CT scan abdomen and pelvis without intravenous contrast shows decompressed bladder secondary to an indwelling Ruiz catheter, a distended rectum with stool lumps, mild bilateral perinephric stranding ASSESSMENT: 49-year-old female with mental retardation, possibly autism spectrum disorder presents to the hospital with acute urinary retention secondary to what we believe might be severe constipation. PLAN: 1. Aggressive bowel management 2. Leave the Ruiz catheter to gravity for now 3. 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 Patient would need better bladder management. I had a long conversation with the parents about considering an intermittent catheterizations program. This can be discussed at length in an ambulatory set ting. 60 minutes spent to complete a consult, more than half of the time spent in counseling and coordination of care and addressing all questions and concerns post by parents at bedside, some time was spent discussing with members of her care team, the rest of the time was spent reviewing medical records past and present, including laboratory and imaging data SONIA CROSS MD Dec 12, 2024 21:19
[2024-12-12 21:28] LABS: COVID19 (SARS ANTIGEN RAPID) PRESUMPTIVE NEGATIVE (NEGATIVE); INFLUENZA TYPE A Negative For Type A (NEGATIVE); INFLUENZA TYPE B Negative For Type B (NEGATIVE)
[2024-12-13 07:34] LABS: BASOPHILS # (AUTO) 0.02 K/uL (0.00-0.20); BASOPHILS % (AUTO) 0.4 % (0.0-5.0); IMMATURE GRANULOCYTE ABSOLUTE 0.01 K/uL (0-1); LYMPHOCYTES # (AUTO) 1.6 K/uL (1.0-4.8); LYMPHOCYTES % (AUTO) 28.4 % (21.0-51.0); MEAN CORPUSCULAR HGB CONC 34.7 g/dL (32.0-36.0); MEAN CORPUSCULAR VOLUME 92.1 fL (79-99); MONOCYTES # (AUTO) 0.7 K/uL (0.1-1.0); MONOCYTES % (AUTO) 13.1 % (3.0-13.0); NEUTROPHILS # (AUTO) 3.2 K/uL (1.8-7.7); NEUTROPHILS % (AUTO) 57.9 % (40.0-77.0); PLATELET COUNT (AUTO) 171 K/uL (130-400); RED BLOOD CELL COUNT(AUTO) 3.69 MIL/uL (4.00-5.50); WHITE BLOOD COUNT (AUTO) 5.5 K/uL (4.8-10.8)
[2024-12-13 07:45] LABS: BILIRUBIN,DIRECT 0.1 mg/dL (0.0-0.3); BILIRUBIN,TOTAL 0.3 mg/dL (0.2-1.0); CREATININE 0.5 mg/dL (0.5-1.0); MAGNESIUM 1.7 mg/dL (1.80-2.40); POTASSIUM 3.4 mmol/L (3.5-5.1); TOTAL PROTEIN, SERUM 6.6 g/dL (6.0-8.3)
--- NOTE | 2024-12-13 08:34 | NUR ---
FAMILY INSISTENT ON PROVIDING PATIENT WITH THEIR OWN MEDICATION. FAMILY PROVIDED WITH EDUCATION REGARDING MEDICATION ADMINISTRATION. FAMILY VOICES REFUSAL. SUCTIONING REQUESTED BY FAMILY. NURSE WENT TO PROVIDE CARE; FAMILY VOICES THEY WOULD RATHER USE THEIR OWN EQUIPMENT AND DECLINED SN ASSISTANCE.
--- NOTE | 2024-12-13 10:00 | NUR ---
PATIENTS FAMILY REFUSED LA REPEAT. PATIENT EDUCATION PROVIDED. FAMILY CONTINUES TO DECLINE REDRAW.
[2024-12-13] MEDS: MAGNESIUM 2GM PREMIX 50ML 50 ML IV SCH (10:20)
[2024-12-13] MEDS: PoTASSium chloRIDE 20MEQ/100ML 100 ML IV SCH (10:21)
--- NOTE | 2024-12-13 11:42 | DS ---
Discharge Summary Hospital Course Summary: DATE OF ADMISSION: 12/12/2024 DATE OF DISCHARGE:[12/13/2024] DISPOSITION:[Home after bowel movement] CONDITION:[Medically stable after bowel movement present] CONSULTANTS:[Urologist] FOLLOW UP APPOINTMENTS:[PCP 2 to 3 days. Urologist within one week] PROCEDURES:[Ruiz catheter placement 12/12/2024] IMAGING: report attached to summary MICROBIOLOGY: report attached to summary ACTIVITY:[Bed-bound] HOME MEDICATIONS: see [facility] NEW MEDICATIONS:[No new medications] EMERGENCY INSTRUCTIONS: The patient was instructed to present to the nearest Emergency departmentr or call 911 once their symptoms will return or worsen Last Ironer(s): Patient is 49 years old female with a past medical history of stroke, seizure, severe mental retardation, hysterectomy, peg tube placement, who came to emergency department with a complaint of nausea, vomiting and inability to urinate since yesterday. Patient had multiple NSAIDs of nausea vomiting since Monday. Inability urinate since yesterday. Parents stated he had a low grade fever at home as well which was less than 100 F. patient also has a PEG tube and gets 1000 calorie 3 times a day however as per father patient was not able to feed the patient yesterday night because of the persistent nausea and vomiting. Patient was also seen/evaluated by her primary care provider and recommended that the patient goes to emergency department for further evaluation and treatment. Throughout the hospitalization patient was evaluated by urologist in emergency department and recommended aggressive bowel movement management, lived Ruiz catheter for gravity. 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 The patient with the need better bladder management. Urologist had a long conversation with the parents about considering an intermittent catheterization program, which can be discussed entered the length in ambulatory settings. Patient was cleared to be discharged home. Patient will receive 20 mEq of potassium as well 2 g of magnesium to replace electrolytes. Patient is cleared to be discharged home follow up with PCP in 2 to 3 days. Follow up with the urologist within 2 to 3 days. Patient to be discharged after bowel movement. Procedure(s): REVIEW OF SYSTEMS CONSTITUTIONAL: Denies fevers, chills, or night sweats. No unintentional weight loss reported. NEUROLOGICAL: Denies headache, amaurosis fugax, motor weakness, sensory deficit, vertigo/spinning sensation, gait abnormalities, or tremors. ENT: No hearing loss, otalgia, otorrhea, rhinitis, rhinorrhea, hoarseness, or so re throat. CARDIOVASCULAR: Denies any exertional angina, dyspnea on exertion, orthopnea, paroxysmal nocturnal dyspnea, palpitations, life-threatening arrhythmias, claudication. PULMONARY: Denies any shortness of breath, cough, phlegm/sputum, hemoptysis, pleuritic chest pain. SLEEP: Denies morning headaches, daytime somnolence or napping. Denies difficulty falling asleep, staying asleep, waking from sleep. Denies knowledge of snoring. GASTROINTESTINAL: Denies any type of dysphagia to either liquids or solids. Denies pyrosis, early satiety, abdominal pain, diarrhea, constipation, or changes in stool consistency or caliber. Denies coffee-ground emesis, hematemesis, hematochezia, or melanotic stools. Denies any nausea vomiting GENITOURINARY: Denies frequency, urgency, nocturia, hematuria or incontinence (Storage/Irritative symptoms.) Low urinary stream, straining to void, urinary intermittency or hesitancy, splitting of the voiding stream, terminal dribbling. Patient has a Ruiz ENDOCRINOLOGIC: Denies polyuria, polydipsia, polyphagia or heat/cold intolerances. HEMATOLOGIC: Denies thrombophilia/previous clots, or coagulopathy/bleeding disorders. ONCOLOGIC: Denies personal history of malignancy. DERMATOLOGIC: Denies rashes or pruritus. PSYCHIATRIC: Denies any suicidal or homicidal ideation. Denies hallucinations. Assessment/Plan: ASSESSMENT: Acute lactic acidosis POA Acute urinary retention POA Persistent nausea and vomiting POA Acute dehydration due to above POA Acute hypotension POA Electrolyte imbalance hyponatremia Na 133 POA Leukocytosis WBC 10.8 POA Severe mental retardation POA Epilepsy POA Hyperlipidemia POA GERD POA Chronic constipation POA History of stroke POA History of hysterectomy ] PLAN: [ Admit to: Medical-surgical floor with telemetry Consults: Urologist consultation Antibiotics: Rocephin Tests: Chest x-ray, 2D echo, CT abdomen/pelvis NEURO: Minimize central acting medications as possible. Fall Precautions. Well lighted room through the day and minimize interruptions through the night to prevent acute delirium. PULMONARY: Chest x-ray pending Supplemental 02 as needed BiPAP as necessary, for respiratory distress Titrate Fio2 to keep Spo2 > or = 90% Radhabs and CPT as needed IS hourly while awake for pulmonary hygiene Out of bed to chair as tolerated VAP Bundle Maintain aspiration precautions at all times CARDIOVASCULAR: 2D echo pending Follow hemodynamics. Vital signs per facility protocol GI & NUTRITION: CT abdomen/pelvis pending Normal saline at 60 mL/hour PEG tube continue as at home Continue nutritional support Aspirations precautions Prokinetic agents and laxatives as needed KIDNEYS & ELECTROLYTES: Strict monitoring of intake and output Daily weights Avoid nephrotoxic agents Monitor electrolytes and replace as needed Goal urine output of 30mL/hr or 0.5mL/kg/hr Medications to be dosed according to renal function. Avoid contrast if possible ENDOCRINE: Urologist consultation Urine culture pending Maintain blood glucose between 100-180 at all times. Insulin sliding scale for blood glucose management Hypoglycemia and hyperglycemia protocol in place INFECTIOUS DISEASE: Trend temperature, WBC and procalcitonin level Follow cultures, deescalate antibiotics as soon as possible. Panculture if new onset fever HEMATOLOGY & COAGULATION: Blood culture pending Monitor H&H. Keep Hgb > 7 Transfuse 1 unit of PRBC for Hgb < 7 Transfuse 1 pack of platelets of platelets < 20, 000 Watch for any signs and symptoms of bleeding SKIN: Pressure ulcer prevention per facility protocol Specialty mattress as needed Treatment plan discussed with patient and family at the bedside Medications to be reconciled once obtained by patient and/or family and available to be reconciled in computer p.r.n. medication for pain nausea and vomiting Questions were answered We will continue to monitor the patient closely Pattern Clerk for disposition Rehab: PT/OT GI: PPI DVT: SCD's Code Status: Full Resuscitation Disposition: TBD Prognosis: Guarded ] Home Medications: Active Scripts [Linzess] No Conflict Check, 72 MCG PEG DAILY PRN for CONSTIPATION, #30 CAP 0 Refills Prov:MANUEL EDUARDO MD 12/12/24 Gridley-3 Acid Ethyl Esters (Lovaza) 1 Gram Capsule, 1 CAP PO DAILYBKFST for 90 Days, #120 CAP 0 Refills Prov:MANUEL EDUARDO MD 12/12/24 Ursodiol (Ursodiol) 500 Mg Tablet, 500 MG PO BID, #180 TAB Prov:MANUEL EDUARDO MD 12/12/24 Phenobarbital (Phenobarbital) 20 Mg/5 Ml (5 Ml) Elixir, 12 ML PO BID for 90 Days, #105 ML 0 Refills Prov:MANUEL EDUARDO MD 12/12/24 Lactulose (Kristalose) 20 Gram Packet, 20 GM GT DAILY for 7 Days, #7 PKT Prov:YULIYA SHIN 02/05/24 Time spent arranging discharge: 31-60 minutes ATTESTATION BY PHYSICIAN I have seen and examined the patient. I reviewed the documentation, medical decision making, and treatment plan as noted by the mid-level provider above. I agree with the findings and plan of care. DAISY Thomas MD INDIRECT SALES REPRESENTATIVE Dec 13, 2024 11:42
--- NOTE | 2024-12-13 12:26 | NUR ---
DCP -- Home Cande Burroughs, Mother/POA [phone] and Kenny Burroughs, Father/POA state patient has mild cerebral palsy, retardation and is disabled. [facility] patient lives with them in a house with walk in shower. [facility] patient is full assist and completely dependent. [facility] she has a wheelchair. Denies home health services and dialysis. Patient has a peg tube. [facility]. Cande Burroughs, Mother/POA [phone], Kenny Burroughs, Father are providers through [facility] for 48 hours a week. Respite care is available. PCP - T[facility] - [facility]. Upon discharge, Cande Burroughs, Mother/POA [phone], Kenny Burroughs, Father will drive her home and continue care. Addendum: 12/13/24 at 1232 by CYRUS TAVAREZ RN CM Amended: Links added.
--- NOTE | 2024-12-13 17:24 | NUR ---
FAMILY VERBALIZES TO RN SHE WOULD LIKE TO GO HOME WHILE SN IS IN PROCESS OF TRANSPORTING A PATIENT. SN STATES TO FAMILY SHE WILL PROVIDE ASSISTANCE IN PATIENTS ROOM. FAMILY VERBALIZES THEY WILL GO HOME AND AND THEY ARE GOING TO REMOVE IV THEMSELVES. SN MAKES ATTEMPT TO EDUCATE FAMILY ON DISCHARGE PROCESS.
--- NOTE | 2024-12-13 17:30 | NUR ---
FAMILY REPORTS TO SN THEY WOULD LIKE TO LEAVE. THEY NEED TO BE HOME AT 1800. PATIENT EDUCATION PROVIDED ON DISCHARGE PROCESS. FAMILY VERBALIZES SHES HEYDI TO FOLLOW UP WITH PROVIDER OUT PATIENT. FAMILY INFORMED DISCHARGE IS BEING WORKED ON. FAMILY STATES "IM TAKING HER HOME AND IM DISCONNECTING HER MYSELF". FURTHER FAMILY EDUCATION PROVIDED. FAMILY AGREED TO WAIT FOR DISCHARGE INSTRUCTIONS AT THIS TIME.
--- NOTE | 2024-12-13 17:51 | HMCSR ---
APPROVED REPORT EXAM: Two-dimensional and M-mode echocardiogram with Doppler and color Doppler. INDICATION ICD: Heart Failure 2D Dimensions RVDd3.5 cmLVEF(%)72.0 (>50%)LVED Vol(simp.)51.1 mL IVSd0.7 (0.7-1.1cm)FS(%)41 %LVES Vol(simp.)19.5 mL LVDd3.9 (3.8-5.6cm)LA (2D)2.5 (1.6-4.0cm)LVEF(%, simp.)62 % PWd0.7 (0.7-1.1cm)Ao Root(2D)3.0 (2.0-3.7cm)LA ESV INDEX (BP)22.05 mL/m2 LVDs2.3 (2.5-4.0cm)LVOT diam1.8 (1.8-2.4cm) IVC diam1.9 cm Deformation Strain Apical 4-20.0 % Apical 2-20.0 % Apical 3-20.0 % Global Strain-20.0 % M-Mode Dimensions EPSS0.6 cm Ao Root(MM)2.7 (2.0-3.7cm) Aortic Valve AoV Vmax1.5 m/Karsten Peak GR8.8 mmHgLVOT Vmax1.0 m/s AoV VTI0.3 mAo Mean GR4.7 mmHgLVOT VTI0.20 m JUDY (VMAX)1.8 cm2AVA (VTI) 1.8 cm2 Mitral Valve MV E Vmax74.5 cm/sDECEL [id number] ms MV A Vmax53.3 cm/sP 1/2 T35 ms E/A ratio1.4MVA (PHT)6.2 cm2 TDI E/E' Medial8.3E/E' Lateral6.2 Medial E' Peak V9.00 cm/sLateral E' Peak V12.00 cm/s Left Ventricle The left ventricle is normal size. GS -20%. There is normal LV segmental wall motion. There is normal left ventricular wall thickness. LVEF is 55-60%. The left ventricular diastolic function is normal. Right Ventricle The right ventricle is normal size. The right ventricular systolic function is normal. Atria The left atrium size is normal. The right atrium size is normal. Aortic Valve The aortic valve is normal in structure. No aortic regurgitation is present. There is no aortic valvu lar stenosis. Mitral Valve The mitral valve is normal in structure. There is no evidence of significant mitral regurgitation. Th ere is no mitral valve stenosis. Tricuspid Valve The tricuspid valve is normal in structure. There is no tricuspid valve regurgitation noted. Pulmonic Valve The pulmonary valve is normal in structure. There is no pulmonic valvular regurgitation. Great Vessels The aortic root is normal in size. The IVC is normal in size and collapses >50% with inspiration. Pericardium There is no pericardial effusion. Conclusion LVEF is 55-60%. The left ventricular diastolic function is normal. GS -20%. There is normal LV segmental wall motion. The aortic root is normal in size. There is no pericardial effusion.
--- NOTE | 2024-12-13 18:00 | NUR ---
SMITH EMPTIED, SMITH EDUCATION PROVIDED TO FAMILY. FAMILY VERBALIZES UNDERSTANDING.
[2024-12-13 18:10] VITALS: BP 100/56; PULSE 90; RESP 16; TEMP 98; O2SAT 96
== END 2024-12-13 18:33 | disposition home or self-care (01) ==
LOC: EDH 10:52 → EDHIP 14:47 → INTOOBSV 14:47
PROVIDERS: ADMIT Internal Medicine; ATTEND Internal Medicine
DX: E87.21 Acute metabolic acidosis (principal); Z20.822 Contact with and (suspected) exposure to COVID-19; E86.0 Dehydration; I95.9 Hypotension, unspecified; E87.1 Hypo-osmolality and hyponatremia; F72 Severe intellectual disabilities; D72.829 Elevated white blood cell count, unspecified; G40.909 Epilepsy, unspecified, not intractable, without status epilepticus; E78.5 Hyperlipidemia, unspecified; K21.9 Gastro-esophageal reflux disease without esophagitis; N17.9 Acute kidney failure, unspecified; R33.9 Retention of urine, unspecified; K59.09 Other constipation; N39.490 Overflow incontinence; R11.2 Nausea with vomiting, unspecified; Z86.73 Personal history of transient ischemic attack (TIA), and cerebral infarction without residual deficits; Z90.710 Acquired absence of both cervix and uterus; Z98.890 Other specified postprocedural states; Z79.899 Other long term (current) drug therapy; Z93.1 Gastrostomy status
CPT/HCPCS: 96376 ×2; 96372 ×2; 96361 ×3; 96375; 99285; 80184; 80048 ×2; 83690; 85025 ×2; 85378; 87040 ×2; 87086 ×2; 87186; 87804 ×2; 82948 ×3; 83605 ×3; 87426; 81001; 81025; 36415 ×2; 74018; 71045; 74176; 96365; 96366; 96367; 83036; 82550; 80076; 83735; 83880; 82140; 93306; 93356; 84145; J3490 ×2; J7030 ×2; J0696 ×2; J2405; J1644 ×2; G0378 ×6; J3475; J3480; 96368